=== PATIENT | female | born 1990 | race Hispanic/Latino ===

== ENCOUNTER 2017-06-12 07:44 | Outpatient (CLI) | payer BC ==
--- NOTE | 2017-06-12 10:46 | ULT ---
RIGHT UPPER QUADRANT SONOGRAM: Date: 06/12/17 HISTORY: Abnormal liver function tests. Right upper quadrant pain. FINDINGS: The gallbladder has a normal appearance without evidence of stones. Common duct is 0.2 cm diameter. L iver is unremarkable without focal mass or intrahepatic biliary dilatation. No free fluid is visible. IMPRESSION: Normal right upper quadrant sonogram. POS: [facility]
== END 2017-06-12 07:45 | disposition home or self-care (01) ==
LOC: ULT 07:44
PROVIDERS: ATTEND Family Medicine
DX: R74.8 Abnormal levels of other serum enzymes (principal)
CPT/HCPCS: 76705